=== PATIENT | female | born 1995 | race Caucasian/White ===

== ENCOUNTER 2017-07-02 00:05 | Emergency (ER) | payer SELFPAY ==
[~2017-07-02] VITALS: Ht 170.2 cm; Wt 111.0 kg
[2017-07-02 00:15] VITALS: Ht 170.2 cm; Wt 111.0 kg
[2017-07-02 01:36] LABS: BARBITURATES Negative (NEGATIVE); BENZODIAZEPINES Negative (NEGATIVE); CANNABINOIDS Negative (NEGATIVE); COCAINE Negative (NEGATIVE); OPIATES Negative (NEGATIVE)
[2017-07-02 02:00] VITALS: BP 148/70; PULSE 70; RESP 20; TEMP 98.2
--- NOTE | 2017-08-12 23:42 | ERD ---
ER Documentation Chief Complaint Chief Complaint c/o ALOC. aaox4, emotional/tearful. Per pt mom "pt not acting herself" HPI 21 yr ols female brought in by family for suspected drug use. Patient denies. Here for a drug tox to prove family wrong ROS All systems reviewed and are negative except as per history of present illness. Allergies Allergies: Coded Allergies: Penicillins (Verified Allergy, Intermediate, RASH AND SWELLING, 07/02/17) PMhx/Soc Medical and Surgical Hx: pt denies Medical Hx, pt denies Surgical Hx History of Surgery: No Anesthesia Reaction: No Hx Neurological Disorder: No Hx Respiratory Disorders: No Hx Cardiac Disorders: No Hx Psychiatric Problems: No Hx Miscellaneous Medical Probl: No Hx Alcohol Use: No (NO PER PT. ) Hx Substance Use: Yes (used to: cocaine, weed, mashrooms, other) Hx Tobacco Use: No (NO PER PT. ) Smoking Status: Never smoker Physical Exam Physical Exam Const: [] Head: Atraumatic Eyes: Normal Conjunctiva ENT: Normal External Ears, Nose and Mouth. Neck: Full range of motion..~ No meningismus. Resp: Clear to auscultation bilaterally Cardio: Regular rate and rhythm, no murmurs Abd: Soft, non tender, non distended. Normal bowel sounds Skin: No petechiae or rashes Back: No midline or flank tenderness Ext: No cyanosis, or edema Neur: Awake and alert Psych: Normal Mood and Affect Results 24 hrs Laboratory Tests Test 07/02/17 00:45 Urine Opiates Screen Negative Urine Barbiturates Negative Urine Amphetamines Screen Negative Urine Benzodiazepines Screen Negative Urine Cocaine Screen Negative Urine Cannabinoids Negative Procedures/MDM MDM: No evidnce of drug use on tox screen. Patient happily discharged home Departure Diagnosis: Primary Impression: Normal exam Condition: Stable Patient Instructions: Normal Exam, (Child) (Adult) CY PRESCOTT Aug 12, 2017 23:42
== END 2017-07-02 02:00 | disposition home or self-care (01) ==
LOC: E/R 00:05
DX: R40.4 Transient alteration of awareness (principal)
CPT/HCPCS: 80307; 99283

== ENCOUNTER 2018-08-05 11:02 | Emergency (ER) | END 2018-08-05 13:40 | disposition home or self-care (01) ==